=== PATIENT | female | born 1990 | race African-American/Black ===

== ENCOUNTER 2021-09-27 17:29 | Emergency (ER) | payer BC ==
[2021-09-27] MEDS ORDERED: Acetaminophen 500 MG TAB ONE (18:13)
[2021-09-27 18:37] LABS: ALT (SGPT) 35 U/L (8-55); AST (SGOT) 27 U/L (5-34); Alkaline Phosphatase 70 U/L (40-110); Anion Gap 15 mmol/L (10-20); BUN (Urea Nitrogen) 12 mg/dL (7.0-18.7); Bilirubin, Total 0.1 mg/dL (0.2-1.2); Calc. Creatinine Clearance 0 mL/min (70-130); Calcium 9.7 mg/dL (7.8-10.44); Carbon Dioxide 23 mmol/L (22-29); Chloride 104 mmol/L (98-107); Globulin 3.6 g/dL (2.4-3.5); Glucose 210 mg/dL (70-105); Potassium 4.8 mmol/L (3.5-5.1); Protein, Total 7.6 g/dL (6.0-8.3); Sodium 137 mmol/L (136-145)
[2021-09-27 18:45] LABS: Bilirubin Neg (Negative); Blood, Urine 250 (Negative); Clarity Cloudy (Clear); Glucose, Urine (Dipstick) 250 mg/dL (Negative); Ketone, Urine 5 mg/dL (Negative); Leukocyte 100 (Negative); Nitrite Negative (Negative); Protein, Urine (Dipstick) 100 mg/dl (Neg-Trace)
[2021-09-27 18:46] LABS: Pregnancy Test - Urine (BHCG) Negative (Negative); Pregu Control Background? CLEAR/WHITE (CLR/WHITE); Pregu Control Bar Appear? YES (CONTROL BAR)
[2021-09-27 19:02] LABS: Bacteria/HPF Rare-Few HPF (None Seen); RBC/HPF Greater than 50 HPF (0-3); Squamous Epithelial 0-3 HPF (0-3); WBC/HPF 0-3 HPF (0-3)
[2021-09-27 19:03] LABS: Mucous/LPF 1+ LPF (<2+)
[2021-09-27 19:44] LABS: Hemoglobin 9.4 g/dL (12.0-15.5); Mean Corpuscular HGB CONC 32.5 g/dL (32.0-36.0); Mean Corpuscular Hemoglobin 26.7 pg (27.0-33.0); Mean Corpuscular Volume 82.1 fl (81.6-98.3); Mean Platelet Volume 9.1 fl (7.4-10.4); Platelet Count 377 10x3/uL (150-450); RBC Distribution Width 15.9 % (11.5-14.5); Red Blood Cell (RBC) Count 3.52 10x6/uL (3.90-5.03); White Blood Cell (WBC) Count 14.9 10x3/uL (3.5-10.5)
[2021-09-27 19:56] LABS: MDiff Complete? YES
[2021-09-27 20:03] LABS: Band 1 % (5-11); Eosinophils 1 % (0-10); Lymphocytes 23 % (21-51); Monocytes 3 % (0-10); Neutrophil 72 % (42-75); Nucleated RBC 1 % (0)
[2021-09-27 20:04] LABS: Large Platelets SLIGHT; Platelet Morphology Comment Appears Adequate
[2021-09-27 20:05] LABS: RBC Morphology Normal
== END 2021-09-27 21:15 | disposition home or self-care (01) ==
LOC: CSHERS 17:29
DX: N92.0 Excessive and frequent menstruation with regular cycle (principal); D64.9 Anemia, unspecified; R00.0 Tachycardia, unspecified; E11.9 Type 2 diabetes mellitus without complications; D50.9 Iron deficiency anemia, unspecified; F17.210 Nicotine dependence, cigarettes, uncomplicated
CPT/HCPCS: 36415; 80053; 81003; 81015; 81025; 85025; 86850; 86900; 86901; 93005

== ENCOUNTER 2021-11-01 20:43 | Emergency (ER) | payer BC ==
[2021-11-01] MEDS ORDERED: Ketorolac Tromethamine 30 MG/ML VIAL ONE (21:04)
== END 2021-11-01 22:04 | disposition home or self-care (01) ==
LOC: CSHERS 20:43
DX: K03.81 Cracked tooth (principal); K02.9 Dental caries, unspecified; F17.210 Nicotine dependence, cigarettes, uncomplicated; E11.9 Type 2 diabetes mellitus without complications
CPT/HCPCS: 70486; 96372; J1885

== ENCOUNTER 2022-07-03 12:06 | Inpatient (IN) | payer OTHER ==
[2022-07-03] MEDS ORDERED: hydrALAZINE 20 MG/ML VIAL SLOW IVP PRN (12:42)
[2022-07-03] MEDS ORDERED: Butorphanol Tartrate 1 MG/ML VIAL SLOW IVP PRN (14:42)
[2022-07-03] MEDS ORDERED: Tranexamic Acid 1,000 MG in Sodium Chloride 0.9% 250 ML 250 ML IVPB PRN (14:42)
[2022-07-03] MEDS ORDERED: Promethazine HCl 25 MG/ML VIAL IM PRN (14:42)
[2022-07-03] MEDS ORDERED: Misoprostol 200 MCG TAB PR PRN (14:42)
[2022-07-03] MEDS ORDERED: Acetaminophen 500 MG TAB PO PRN (14:42)
[2022-07-03] MEDS ORDERED: Methylergonovine 0.2 MG/ML VIAL IM PRN (14:42)
[2022-07-03] MEDS ORDERED: Ondansetron PF 4 MG/2 ML Vial IVP PRN (14:42)
[2022-07-03] MEDS ORDERED: Lidocaine 1% (PF) 30 ML VIAL SC PRN (14:42)
[2022-07-03] MEDS ORDERED: Carboprost 250 MCG/ML AMP IM PRN (14:42)
[2022-07-03] MEDS ORDERED: Lactated Ringer's 1,000 ML IV SCH (14:45)
[2022-07-03] MEDS ORDERED: NS w/ Oxytocin 30 units 500 ML IV SCH ×2 (14:45→19:00)
[2022-07-03] MEDS ORDERED: Tranexamic Acid 1,000 MG/10 ML VIAL IVP PRN (14:53)
[2022-07-03 16:00] LABS: Hemoglobin 10.6 g/dL (12.0-15.5); Mean Corpuscular HGB CONC 32.8 g/dL (32.0-36.0); Mean Corpuscular Hemoglobin 27.1 pg (27.0-33.0); Mean Corpuscular Volume 82.6 fl (81.6-98.3); Mean Platelet Volume 9.4 fl (7.4-10.4); Platelet Count 445 10x3/uL (150-450); Red Blood Cell (RBC) Count 3.91 10x6/uL (3.90-5.03); White Blood Cell (WBC) Count 16.6 10x3/uL (3.5-10.5)
[2022-07-03 16:03] LABS: Glucose 96 mg/dL (70-105)
[2022-07-03 16:30] LABS: HBSAg Index 0.14 S/CO (0-0.99); Hep B Surf Ag Non-Reactive S/CO (NonReactive); Syphilis Antibody Nonreactive (Nonreactive); Syphilis Antibody Index 0.05 S/CO (<1.00 Non-Reactive)
[2022-07-03 18:23] VITALS: BMI 42.4
[2022-07-03 19:06] LABS: SARS-CoV-2 NAA Rapid Test Not Detected (NotDetected)
== END 2022-07-04 06:25 | disposition home or self-care (01) | DRG 805 ==
LOC: CSHLD/OP 12:06 → CSHLD 18:27
PROVIDERS: ADMIT Family Medicine; ATTEND Family Medicine
PROC: 10E0XZZ Delivery of Products of Conception, External Approach (ICD-10-PCS; principal; 2022-07-03)
PROC: 10907ZC Drainage of Amniotic Fluid, Therapeutic from Products of Conception, Via Natural or Artificial Opening (ICD-10-PCS; 2022-07-03)
DX: O60.14X0 Preterm labor third trimester with preterm delivery third trimester, not applicable or unspecified (principal); O24.12 Pre-existing type 2 diabetes mellitus, in childbirth; Z37.1 Single stillbirth; O36.4XX0 Maternal care for intrauterine death, not applicable or unspecified; O99.02 Anemia complicating childbirth; D50.9 Iron deficiency anemia, unspecified; O40.3XX0 Polyhydramnios, third trimester, not applicable or unspecified; Z20.822 Contact with and (suspected) exposure to COVID-19; O75.89 Other specified complications of labor and delivery; K44.9 Diaphragmatic hernia without obstruction or gangrene; O66.3 Obstructed labor due to other abnormalities of fetus; Z3A.35 35 weeks gestation of pregnancy; Z79.84 Long term (current) use of oral hypoglycemic drugs; Z79.899 Other long term (current) drug therapy; O99.214 Obesity complicating childbirth; E66.9 Obesity, unspecified; O32.8XX0 Maternal care for other malpresentation of fetus, not applicable or unspecified
CPT/HCPCS: 82947; 85027; 86780; 86850; 86900; 86901; 87340; 88307; 99285; J0595; J2590; J7120; U0002

== ENCOUNTER 2023-05-16 21:01 | Inpatient (IN) | payer OTHER ==
[2023-05-16 21:34] VITALS: BMI 37.5
[2023-05-16 23:04] LABS: Fetal Membranes Rupture RUPTURE DETECTED (No Rupture)
[2023-05-16] MEDS ORDERED: hydrALAZINE 20 MG/ML VIAL SLOW IVP PRN (23:17)
[2023-05-16] MEDS ORDERED: Promethazine HCl 25 MG/ML VIAL IM PRN (23:17)
[2023-05-16] MEDS ORDERED: Docusate 100 MG CAP PO PRN (23:17)
[2023-05-16] MEDS ORDERED: Ondansetron PF 4 MG/2 ML Vial IVP PRN (23:17)
[2023-05-16] MEDS ORDERED: Acetaminophen 500 MG TAB PO PRN (23:17)
[2023-05-16] MEDS ORDERED: Oxytocin 30 units/NS 500 ML 500 ML IV SCH (23:30)
[2023-05-16] MEDS: Lactated Ringer's 1,000 ML IV SCH (23:45)
[2023-05-16] MEDS: Ampicillin 2 GM in Sodium Chloride 0.9% 100 ML IVPB SCH (23:57)
[2023-05-16] MEDS: Betamet Acet/Betamet Na Ph 30 MG/5 ML VIAL IM SCH (23:57)
[2023-05-17 00:13] LABS: #Eosinphils 0.2 10x3/uL (0.0-0.5); #Monocytes 1.5 10x3/uL (0.0-1.1); #Neutrophils 13.1 10x3/uL (1.5-8.4); %Basophils 0.2 % (0.0-2.0); %Lymphocytes 16.1 % (18.0-47.0); %Monocytes 8.2 % (0.0-10.0); %Neutrophils 72.1 % (40.0-75.0); Hematocrit 30.8 % (34.9-44.5); Hemoglobin 10.2 g/dL (12.0-15.5); Mean Corpuscular HGB CONC 33.1 g/dL (32.0-36.0); Mean Corpuscular Hemoglobin 27.6 pg (27.0-33.0); Mean Corpuscular Volume 83.2 fl (81.6-98.3); Mean Platelet Volume 9.2 fl (7.4-10.4); Platelet Count 405 10x3/uL (150-450); RBC Distribution Width 14.1 % (11.5-14.5); White Blood Cell (WBC) Count 18.2 10x3/uL (3.5-10.5)
[2023-05-17 00:24] LABS: ALT (SGPT) 25 U/L (8-55); AST (SGOT) 14 U/L (5-34); Albumin 3.2 g/dL (3.5-5.0); Alkaline Phosphatase 117 U/L (40-110); Anion Gap 13 mmol/L (10-20); BUN (Urea Nitrogen) 8 mg/dL (7.0-18.7); Bilirubin, Total 0.2 mg/dL (0.2-1.2); Calc. Creatinine Clearance 261 mL/min (70-130); Calcium 9.3 mg/dL (7.8-10.44); Carbon Dioxide 19 mmol/L (22-29); Chloride 107 mmol/L (98-107); Estimated GFR 128; Globulin 3.6 g/dL (2.4-3.5); Glucose 91 mg/dL (70-105); Potassium 3.7 mmol/L (3.5-5.1); Protein, Total 6.8 g/dL (6.0-8.3); Sodium 135 mmol/L (136-145)
[2023-05-17 00:37] LABS: Hep B Surf Ag - L&D Non-Reactive S/CO (NonReactive)
[2023-05-17 00:38] LABS: Syphilis Antibody Nonreactive (Nonreactive); Syphilis Antibody Index 0.08 S/CO (<1.00 Non-Reactive)
[2023-05-17 00:39] LABS: Bilirubin Neg (Negative); Blood, Urine 10 (Negative); Clarity Clear (Clear); Glucose, Urine (Dipstick) Normal (Negative); Ketone, Urine Negative (Negative); Leukocyte Negative (Negative); Nitrite Negative (Negative); Protein, Urine (Dipstick) 15 mg/dl (Neg-Trace)
[2023-05-17] MEDS: Azithromycin 500 MG in Sodium Chloride 0.9% 250 ML 250 ML IVPB SCH ×2 (00:39→01:47)
[2023-05-17] MEDS ORDERED: Glucagon 1 MG/ML KIT IM PRN (00:50)
[2023-05-17] MEDS ORDERED: Dextrose 5% in Water 1,000 ML IV PRN (00:50)
[2023-05-17] MEDS ORDERED: HumaLOG 300 UNITS/3 ML VIAL SC PRN (00:50)
[2023-05-17] MEDS ORDERED: Dextrose 50% Abboject 50 ML SYRINGE SLOW IVP PRN (00:50)
[2023-05-17] MEDS ORDERED: metFORMIN 500 MG TAB PO SCH (01:00)
[2023-05-17 01:05] LABS: Amphetamine Not Detected (NotDetected); Barbiturates Screen Not Detected (NotDetected); Benzodiazepine Screen Not Detected (NotDetected); Cocaine Metabolite Screen Not Detected (NotDetected); Methadone Not Detected (NotDetected); Methamphetamine Not Detected (NotDetected); Opiate Screen Not Detected (NotDetected); Oxycodone Screen Not Detected (NotDetected); Phencyclidine (PCP) Not Detected (NotDetected); THC/Cannabinoid Screen Not Detected (NotDetected); Tricyclic Screen Not Detected (NotDetected)
[2023-05-17 01:06] LABS: RBC/HPF 0-3 HPF (0-3); Squamous Epithelial 0-3 HPF (0-3); WBC/HPF 0-3 HPF (0-3)
[2023-05-17 01:07] LABS: Bacteria/HPF None Seen HPF (None Seen)
[2023-05-17] MEDS: Ampicillin 2 GM in Sodium Chloride 0.9% 100 ML IVPB SCH ×2 (06:08→11:28)
[2023-05-17] MEDS: metFORMIN 500 MG TAB PO SCH ×2 (07:53→16:50)
[2023-05-17] MEDS ORDERED: Lantus 1000 UNITS/10 ML VIAL SC SCH (09:00)
[2023-05-17] MEDS ORDERED: Nicotine 7 MG PATCH TD PRN (09:00)
[2023-05-17] MEDS ORDERED: Aspirin Chewable 81 MG TAB PO SCH (09:00)
[2023-05-17] MEDS: metroNIDAZOLE 500 MG TAB PO SCH ×2 (09:07→21:10)
[2023-05-17] MEDS: Prenatal Vitamin 1 TAB PO SCH (09:07)
[2023-05-17] MEDS: Vancomycin 1 GM in Sodium Chloride 0.9% 250 ML 250 ML IVPB SCH ×2 (12:29→20:00)
[2023-05-17] MEDS ORDERED: Lidocaine 1% w/Epinephrine 1:100K 20 ML VIAL FS SCH (12:30)
[2023-05-17 15:24] LABS: Chlamydia by PCR, Vaginal Swab Not Detected (NotDetected); GC by PCR, Vaginal Swab Not Detected (NotDetected)
[2023-05-17] MEDS: HumaLOG 300 UNITS/3 ML VIAL SC PRN (20:02)
[2023-05-17] MEDS: Betamet Acet/Betamet Na Ph 30 MG/5 ML VIAL IM SCH (23:58)
[2023-05-18] MEDS: Lactated Ringer's 1,000 ML IV SCH ×3 (02:25→09:44)
[2023-05-18] MEDS ORDERED: Lantus 1000 UNITS/10 ML VIAL SC SCH ×2 (04:15→05:00)
[2023-05-18] MEDS: Vancomycin 1 GM in Sodium Chloride 0.9% 250 ML 250 ML IVPB SCH (04:18)
[2023-05-18] MEDS ORDERED: Oxytocin 30 units/NS 500 ML 500 ML ONE (04:20)
[2023-05-18] MEDS ORDERED: Tranexamic Acid 1,000 MG/10 ML VIAL ONE (04:21)
[2023-05-18] MEDS ORDERED: Carboprost 250 MCG/ML AMP ONE (04:21)
[2023-05-18] MEDS ORDERED: Misoprostol 200 MCG TAB ONE (04:21)
[2023-05-18] MEDS ORDERED: Methylergonovine 0.2 MG/ML VIAL ONE (04:21)
[2023-05-18 04:24] LABS: #Basophils 0.1 10x3/uL (0.0-0.2); #Monocytes 0.9 10x3/uL (0.0-1.1); #Neutrophils 18.2 10x3/uL (1.5-8.4); %Basophils 0.2 % (0.0-2.0); %Lymphocytes 7.5 % (18.0-47.0); %Monocytes 4.4 % (0.0-10.0); %Neutrophils 86.2 % (40.0-75.0); Hematocrit 30.8 % (34.9-44.5); Mean Corpuscular HGB CONC 32.5 g/dL (32.0-36.0); Mean Corpuscular Hemoglobin 27.2 pg (27.0-33.0); Mean Corpuscular Volume 83.7 fl (81.6-98.3); Mean Platelet Volume 9.1 fl (7.4-10.4); Platelet Count 407 10x3/uL (150-450); RBC Distribution Width 14.3 % (11.5-14.5); Red Blood Cell (RBC) Count 3.68 10x6/uL (3.90-5.03); White Blood Cell (WBC) Count 21.2 10x3/uL (3.5-10.5)
[2023-05-18 04:27] LABS: Vancomycin, Trough 2.7 ug/mL
[2023-05-18] MEDS ORDERED: Ampicillin 2 GM in Sodium Chloride 0.9% 100 ML IVPB SCH (06:00)
[2023-05-18] MEDS ORDERED: Phytonadione Neonatal 1 MG/0.5 ML AMP ONE (06:37)
[2023-05-18] MEDS ORDERED: Erythromycin Base 0.5% Oint 1 GM TUBE ONE (06:37)
[2023-05-18 06:53] LABS: Analyzer IN Cardio CS NICU; RapidComm Collect By CBN; pH (Cord, venous) 7.336 (7.250-7.350)
[2023-05-18] MEDS ORDERED: Boostrix 0.5 ML (Tdap) VIAL (>/=7 yrs of age) IM ONE (07:13)
[2023-05-18] MEDS ORDERED: hydrALAZINE 20 MG/ML VIAL SLOW IVP PRN (07:13)
[2023-05-18] MEDS ORDERED: Bisacodyl 10 MG SUPP PR PRN (07:13)
[2023-05-18] MEDS ORDERED: Ondansetron PF 4 MG/2 ML Vial IVP PRN (07:13)
[2023-05-18] MEDS ORDERED: Milk Of Magnesia 30 ML UDCUP PO PRN (07:13)
[2023-05-18] MEDS ORDERED: HYDROcodone/Acetaminophen 5/325 mg Tablet PO PRN (07:21)
[2023-05-18] MEDS ORDERED: Acetaminophen 325 MG TAB PO PRN (07:22)
[2023-05-18] MEDS ORDERED: HYDROcodone/Acetaminophen 5/325 mg Tablet PO SCH (07:30)
[2023-05-18] MEDS: metFORMIN 500 MG TAB PO SCH ×2 (07:47→16:27)
[2023-05-18 08:14] LABS: Vancomycin, Peak 8.7 ug/mL (20.0-40.0)
[2023-05-18] MEDS: Ferrous Sulfate 325 MG TAB PO SCH ×2 (09:33→16:10)
[2023-05-18] MEDS: Ibuprofen 800 MG TAB PO SCH ×2 (09:35→15:03)
[2023-05-18] MEDS: metroNIDAZOLE 500 MG TAB PO SCH ×2 (09:59→21:08)
[2023-05-18] MEDS: Docusate 100 MG CAP PO SCH ×2 (09:59→21:08)
[2023-05-18] MEDS: Prenatal Vitamin 1 TAB PO SCH (09:59)
[2023-05-18] MEDS ORDERED: VANCOMYCIN 1.5 GM in Sodium Chloride 0.9% 500 ML IVPB SCH (10:00)
[2023-05-18] MEDS: HumaLOG 300 UNITS/3 ML VIAL SC PRN (11:20)
[2023-05-18] MEDS ORDERED: Ibuprofen 800 MG TAB PO SCH (14:00)
[2023-05-19] MEDS: Ibuprofen 800 MG TAB PO SCH ×3 (00:46→16:58)
[2023-05-19 05:16] LABS: #Eosinphils 0.1 10x3/uL (0.0-0.5); #Monocytes 1.6 10x3/uL (0.0-1.1); #Neutrophils 13.8 10x3/uL (1.5-8.4); %Basophils 0.2 % (0.0-2.0); %Eosinophils 0.5 % (0.0-6.0); %Lymphocytes 19.1 % (18.0-47.0); %Neutrophils 70.1 % (40.0-75.0); Hemoglobin 9.1 g/dL (12.0-15.5); Mean Corpuscular HGB CONC 32.5 g/dL (32.0-36.0); Mean Corpuscular Hemoglobin 27.4 pg (27.0-33.0); Mean Corpuscular Volume 84.3 fl (81.6-98.3); Mean Platelet Volume 9.5 fl (7.4-10.4); Platelet Count 386 10x3/uL (150-450); RBC Distribution Width 14.1 % (11.5-14.5); Red Blood Cell (RBC) Count 3.32 10x6/uL (3.90-5.03); White Blood Cell (WBC) Count 19.7 10x3/uL (3.5-10.5)
[2023-05-19] MEDS ORDERED: AMOXicillin 250 MG CAP PO SCH (06:00)
[2023-05-19] MEDS: metFORMIN 500 MG TAB PO SCH ×2 (09:30→16:58)
[2023-05-19] MEDS: Prenatal Vitamin 1 TAB PO SCH (09:30)
[2023-05-19] MEDS: metroNIDAZOLE 500 MG TAB PO SCH ×2 (09:30→22:39)
[2023-05-19] MEDS: Docusate 100 MG CAP PO SCH ×2 (09:31→22:39)
[2023-05-19] MEDS: Ferrous Sulfate 325 MG TAB PO SCH ×2 (09:31→16:58)
[2023-05-19] MEDS: Lantus 1000 UNITS/10 ML VIAL SC SCH (09:33)
[2023-05-20] MEDS: Ibuprofen 800 MG TAB PO SCH ×3 (00:29→16:40)
[2023-05-20 07:58] VITALS: BP 126/82; TEMP 99.2
[2023-05-20] MEDS: Docusate 100 MG CAP PO SCH (09:17)
[2023-05-20] MEDS: Prenatal Vitamin 1 TAB PO SCH (09:17)
[2023-05-20] MEDS: Ferrous Sulfate 325 MG TAB PO SCH ×2 (09:17→16:40)
[2023-05-20] MEDS: metFORMIN 500 MG TAB PO SCH ×2 (09:17→17:44)
[2023-05-20] MEDS: metroNIDAZOLE 500 MG TAB PO SCH (09:18)
[2023-05-20] MEDS: Lantus 1000 UNITS/10 ML VIAL SC SCH (09:18)
[2023-05-20] MEDS ORDERED: Preparation H Ointment 28 GM TUBE TOP PRN (16:28)
== END 2023-05-20 18:40 | disposition home or self-care (01) | DRG 805 ==
LOC: CSHLD/OP 21:01 → CSHLD 23:17 → CSHANTE 05-18 08:37 → CSHPED 05-18 15:11
PROVIDERS: ADMIT Student in an Organized Health Care Education/Training Program; ATTEND Student in an Organized Health Care Education/Training Program
PROC: 0J990ZZ Drainage of Buttock Subcutaneous Tissue and Fascia, Open Approach (ICD-10-PCS; 2023-05-17)
PROC: 10E0XZZ Delivery of Products of Conception, External Approach (ICD-10-PCS; principal; 2023-05-18)
PROC: 4A043R1 Measurement of Venous Saturation, Peripheral, Percutaneous Approach (ICD-10-PCS; 2023-05-18)
DX: O60.14X0 Preterm labor third trimester with preterm delivery third trimester, not applicable or unspecified (principal); O24.12 Pre-existing type 2 diabetes mellitus, in childbirth; Z37.0 Single live birth; O41.1230 Chorioamnionitis, third trimester, not applicable or unspecified; L02.31 Cutaneous abscess of buttock; O99.892 Other specified diseases and conditions complicating childbirth; E61.1 Iron deficiency; F17.210 Nicotine dependence, cigarettes, uncomplicated; L73.2 Hidradenitis suppurativa; R51.9 Headache, unspecified; N76.0 Acute vaginitis; B96.20 Unspecified Escherichia coli [E. coli] as the cause of diseases classified elsewhere; Z3A.34 34 weeks gestation of pregnancy
CPT/HCPCS: 36415; 36416; 76815; 76817; 76819; 76999; 80053; 80202; 80306; 81001; 82805; 84112; 85025; 86140; 86780; 86850; 86900; 86901; 87070; 87076; 87077; 87086; 87186; 87205; 87340; 87480; 87491; 87510; 87591; 87660; 88307; 99285; J0290; J0456; J0702; J1815; J3370; J3490; J7030; J7050; J7120